=== PATIENT | female | born 1995 | race Caucasian/White ===

== ENCOUNTER 2019-05-26 20:12 | Emergency (ER) | payer OTHER ==
[~2019-05-26] VITALS: Ht 160 cm; Wt 68.0 kg
[2019-05-26] MEDS ORDERED: DIAZ10TA PO (20:39)
[2019-05-26] MEDS ORDERED: GABA300C PO (20:39)
[2019-05-26] MEDS ORDERED: ESCI20TA PO (20:39)
--- NOTE | 2019-05-26 21:00 | NUR ---
PATIENT WAS MSE BY DR ROTHMAN IN ROOM 04A.
[2019-05-26] MEDS ORDERED: SULFAMETH/TRIMETH 800/160 MG TABLET PO ONE (21:15)
[2019-05-26] MEDS ORDERED: SULFAMETH/TRIMETH 800/160 MG TABLET ONE (21:17)
--- NOTE | 2019-05-26 21:19 | NUR ---
Patient does not wish to proceed with medical care recommended by Dr. ROTHMAN. Patient given information related to possible complications, up to and including , which could occur as a result of leaving the hospital at this time. Patient verbalizes understanding of risks involved due to leaving against medical advice. Patient has signed AMA form.
[2019-05-26 21:21] VITALS: BP 115/79
[2019-05-26] MEDS ORDERED: CLON0.1T PO (23:16)
[2019-05-26] MEDS ORDERED: ONDA8TAB6 PO (23:16)
[2019-05-26] MEDS ORDERED: DIAZ2TAB PO (23:16)
[2019-05-26] MEDS ORDERED: HYDR-3028 PO (23:16)
[2019-05-26] MEDS ORDERED: METH-406 PO (23:16)
== END 2019-05-26 21:22 | disposition left against medical advice (07) ==
LOC: ER 20:14
DX: L03.113 Cellulitis of right upper limb (principal); F14.10 Cocaine abuse, uncomplicated; F12.10 Cannabis abuse, uncomplicated; F15.10 Other stimulant abuse, uncomplicated; Z88.8 Allergy status to other drugs, medicaments and biological substances; Z79.899 Other long term (current) drug therapy
CPT/HCPCS: A4663

== ENCOUNTER 2019-05-26 22:58 | Emergency (ER) | payer BC, OTHER ==
[~2019-05-26] VITALS: Ht 160 cm; Wt 68.0 kg
[~2019-05-26 22:58] MED LIST: DIAZ10TA PO; ESCI20TA PO; GABA300C PO
--- NOTE | 2019-05-26 23:12 | NUR ---
Dr. Harkins at bedside for MSE.
[2019-05-26] MEDS ORDERED: VANCOMYCIN IV 1,000 MG in IV DEXTROSE 5% 250 ML IV ONE (23:15)
[2019-05-26] MEDS ORDERED: IV NORMAL SALINE 1000 ML BAG IV ONE (23:15)
[2019-05-26] MEDS ORDERED: DIAZ2TAB PO (23:16)
[2019-05-26] MEDS ORDERED: METH-406 PO (23:16)
[2019-05-26] MEDS ORDERED: ONDA8TAB6 PO (23:16)
[2019-05-26] MEDS ORDERED: CLON0.1T PO (23:16)
[2019-05-26] MEDS ORDERED: HYDR-3028 PO (23:16)
[2019-05-26] MEDS ORDERED: VANCOMYCIN IV 200 ML ONE (23:19)
--- NOTE | 2019-05-26 23:35 | NUR ---
Pt provided urine sample, sent to lab.
[2019-05-26 23:40] LABS: BASOPHILS # (AUTO) 0.1 K/uL (0.0-8.0); BASOPHILS % (AUTO) 0.5 % (0.0-2.0); EOSINOPHILS # (AUTO) 0.1 K/uL (0.0-0.7); EOSINOPHILS % (AUTO) 1.1 % (0.0-7.0); LYMPHOCYTES # (AUTO) 1.8 K/uL (20.0-40.0); LYMPHOCYTES % (AUTO) 13.8 % (20.5-51.5); MEAN CORPUSCULAR HEMOGLOBIN 31.9 uug (24.7-32.8); MEAN CORPUSCULAR HGB CONC 34 g/dL (32.3-35.6); MEAN CORPUSCULAR VOLUME 92.9 fL (75.5-95.3); MONOCYTES # (AUTO) 1.6 K/uL (2.0-10.0); MONOCYTES % (AUTO) 12.2 % (0.0-11.0); NEUTROPHILS # (AUTO) 9.5 K/uL (1.8-8.9); NEUTROPHILS % (AUTO) 72.4 % (38.5-71.5); PLATELET COUNT (AUTO) 281 K/uL (179-408); RED BLOOD CELL COUNT(AUTO) 4.09 MIL/uL (3.63-4.92); WHITE BLOOD COUNT (AUTO) 13.2 K/uL (3.8-11.8)
[2019-05-26 23:45] LABS: *BLOOD, URINE 2+ (NEGATIVE); *CLARITY,URINE CLOUDY (CLEAR); *COLOR,URINE YELLOW (YELLOW); *KETONES,URINE 1+ (NEGATIVE); LEUKOCYTE ESTERASE ,URINE NEGATIVE (NEGATIVE); NITRITE, URINE NEGATIVE (NEGATIVE); UGLUCOSE NEGATIVE (NEGATIVE)
[2019-05-26 23:46] LABS: *BILIRUBIN,URIN 2+ (NEGATIVE)
[2019-05-26 23:51] LABS: *URINE HCG, QUAL NEGATIVE (NEGATIVE); BILIRUBIN,DIRECT 0.3 mg/dL (0.0-0.2); BILIRUBIN,TOTAL 1.6 mg/dL (0.2-1.0); CREATININE 0.9 mg/dL (0.6-1.3)
[2019-05-26 23:55] LABS: POTASSIUM 2.7 mmol/L (3.5-5.1)
[2019-05-27] MEDS ORDERED: POTASSIUM CHLORIDE 20 MEQ TAB.PRT.SR PO ONE
[2019-05-27 00:09] LABS: BACTERIA,URINE NONE SEEN /HPF (NONE SEEN); MUCUS,URINE MODERATE /LPF (0-FEW); SQUAMOUS EPITHELIAL CELL,UR MANY /HPF (NONE SEEN); URINE AMORPHOUS URATE MODERATE /HPF
--- NOTE | 2019-05-27 00:09 | NUR ---
Dr. Harkins on panel call with Geovanny Mtz NP. Patient accepted for admission to [facility], diagnosis: cellulitis.
[2019-05-27] MEDS ORDERED: POTASSIUM CHLORIDE 20 MEQ TAB.PRT.SR ONE (00:10)
[2019-05-27] MEDS ORDERED: ONDANSETRON 4 MG/2 ML VIAL IV PRN (00:15)
[2019-05-27] MEDS ORDERED: MAGNESIUM HYDROXIDE 30 ML LIQUID UDC PO PRN (00:15)
[2019-05-27] MEDS ORDERED: HYDROCODONE/APAP 5-325MG TABLET PO PRN (00:15)
[2019-05-27] MEDS ORDERED: ACETAMINOPHEN 325 MG TABLET PO PRN (00:15)
[2019-05-27] MEDS ORDERED: Z GUARD REMEDY PASTE 57 GM TUBE TOP PRN (00:15)
--- NOTE | 2019-05-27 00:22 | NUR ---
Claudia Mcdowell of [facility], left her phone number , needs to be called when patient is discharged from the hospital.
--- NOTE | 2019-05-27 00:56 | NUR ---
Report given to Nuno CORDERO [facility].
[2019-05-27] MEDS ORDERED: IV NS 1000 ML 1,000 ML IV PRN (01:30)
--- NOTE | 2019-05-27 01:30 | NUR ---
patient arrived on the floor in a wheelchair. appears agitated. Reports pain in the hand.
--- NOTE | 2019-05-27 01:45 | NUR ---
patient continues to become more aggressive and verbally abusive, throwing personal items at the door and olea. Demands to go downstairs for a smoke, demands to have her boyfriend with her overnight. Charge nurse was notified. Security is at the room door attempting to calm her down. patient continues to escalate the situation.
--- NOTE | 2019-05-27 02:15 | NUR ---
patient became aggressive and continued to be verbally abusive. Left AMA after attempts to explain the medical necessity for treatments. Did not allow to remove IV. [facility] was contacted([phone] Claudia Mcdowell) by the charge nurse
--- NOTE | 2019-05-27 05:30 | NUR ---
[employer] and [employer] were notified that patient did not allow to remove IV access reporting : "I took it out myself". IV cannula is observed in the sharps container.
== END 2019-05-27 02:30 | disposition left against medical advice (07) ==
LOC: ER 22:59 → MEDSURG3 05-27 00:05 → UNDOADMIN 05-27 00:05 → ER 05-27 02:30 → UNDODISIN 05-27 02:30
DX: L03.113 Cellulitis of right upper limb (principal); S61.431A Puncture wound without foreign body of right hand, initial encounter; X78.8XXA Intentional self-harm by other sharp object, initial encounter; Y93.89 Activity, other specified; Y99.8 Other external cause status; F43.10 Post-traumatic stress disorder, unspecified; F32.9 Major depressive disorder, single episode, unspecified; Z79.899 Other long term (current) drug therapy; Z87.19 Personal history of other diseases of the digestive system; F19.10 Other psychoactive substance abuse, uncomplicated
CPT/HCPCS: 36415; 83605; 83690; 84703; 85025; 87040; A4663; G0378; J3370; J7030

== ENCOUNTER 2019-09-07 19:50 | Emergency (ER) | payer BC ==
[~2019-09-07] VITALS: Ht 162.6 cm; Wt 79.4 kg
[~2019-09-07 19:50] MED LIST changes: +CLON0.1T PO; +DIAZ2TAB PO; +HYDR-3028 PO; +METH-406 PO; +ONDA8TAB6 PO
[2019-09-07 20:26] LABS: *URINE HCG, QUAL NEGATIVE (NEGATIVE)
[2019-09-07 20:32] LABS: *BILIRUBIN,URIN 1+ (NEGATIVE); *CLARITY,URINE SLIGHTLY CLOUDY (CLEAR); *COLOR,URINE DARK YELLOW (YELLOW); *KETONES,URINE 2+ (NEGATIVE); *UROBILINOGEN,URINE 0.2 E.U./dl (NORMAL); LEUKOCYTE ESTERASE ,URINE NEGATIVE (NEGATIVE); NITRITE, URINE NEGATIVE (NEGATIVE); PH,URINE 5.5 (5.0-8.0); UGLUCOSE NEGATIVE (NEGATIVE)
[2019-09-07 20:39] LABS: *BLOOD, URINE TRACE (NEGATIVE)
[2019-09-07 20:40] LABS: BACTERIA,URINE MODERATE /HPF (NONE SEEN); MUCUS,URINE MANY /LPF (0-FEW); SQUAMOUS EPITHELIAL CELL,UR MODERATE /HPF (NONE SEEN)
--- NOTE | 2019-09-07 21:10 | NUR ---
pt given discharge instruction . pt have no question .
[2019-09-07 21:25] VITALS: BP 126/71
== END 2019-09-07 21:30 | disposition home or self-care (01) ==
LOC: ER 19:52
DX: R30.0 Dysuria (principal); R39.15 Urgency of urination; R35.0 Frequency of micturition; F32.9 Major depressive disorder, single episode, unspecified; F41.9 Anxiety disorder, unspecified; F12.10 Cannabis abuse, uncomplicated; F14.10 Cocaine abuse, uncomplicated; F15.10 Other stimulant abuse, uncomplicated; Z88.8 Allergy status to other drugs, medicaments and biological substances; Z79.899 Other long term (current) drug therapy
CPT/HCPCS: 84703; 87086; A4663